=== PATIENT | male | born 1955 | race Caucasian/White ===

== ENCOUNTER 2022-01-10 10:13 | Outpatient (CLI) | payer MEDICARE, SELFPAY ==
--- NOTE | ~2022-01-10 | CT_ITS ---
EXAMINATION: CT lung screening DATE: 01/10/2022 10:40 INDICATION: Personal history of nicotine dependence, current smoker with 30 pack year history TECHNIQUE: Computed tomography (CT) of the chest was performed without intravenous contrast. The dose -length product (DLP) was 70.96 mGy-cm. Automated exposure control and iterative reconstruction techn Set.fmue were employed. COMPARISON: None FINDINGS: There is mild emphysema. The lungs are free of acute opacities. No pleural effusion or pneu mothorax. No suspicious pulmonary nodules are identified. No pathologically enlarged thoracic lymph n odes are identified. The heart size is normal. There are calcifications of the pericardium, likely re flecting prior pericarditis. There is severe thoracic spondylosis. IMPRESSION: 1. Lung-RADS category 1: Negative. Continue annual screening with noncontrast low-dose chest CT in 12 months. Reviewed, dictated and finalized at location A. IMPRESSION: 1. Lung-RADS category 1: Negative. Continue annual screening with noncontrast l ow-dose chest CT in 12 months.
== END 2022-01-10 10:14 | disposition home or self-care (01) ==
PROVIDERS: PCP Internal Medicine; Visit Provider Internal Medicine
DX: Z12.2 Encounter for screening for malignant neoplasm of respiratory organs (principal); Z87.891 Personal history of nicotine dependence
CPT/HCPCS: 71271

== ENCOUNTER 2024-03-07 14:50 | Outpatient (CLI) | payer MEDICARE, SELFPAY ==
--- NOTE | ~2024-03-07 | CT_ITS ---
EXAMINATION: CT lung screening DATE: 03/07/2024 15:26 INDICATION: SMOKER SCREENING-CURRENT,SOB TECHNIQUE: Computed tomography (CT) of the chest was performed without intravenous contrast. Addition al 3D reconstructions utilizing coronal maximum intensity projection (MIP) were performed. Automated exposure control and iterative reconstruction technique were employed. The dose-length product was 70 .38 mGy-cm. COMPARISON: 01/10/2022 FINDINGS: Moderate emphysema. Unchanged calcified nodules in the left lower lobe consistent with old granulomat ous disease. No other suspicious pulmonary nodules, pneumonia, pulmonary edema or pleural effusion. H eart size is normal. There is extensive pericardial calcification along the which could be seen with constrictive pericarditis. Thoracic aorta is normal in caliber. No pathologically enlarged thoracic l ymphadenopathy. Severe thoracic, lower cervical and upper lumbar spondylosis. Chronic mild anterior w edging of a few mid and lower thoracic vertebral bodies. Partially visualized mild lumbar dextroscoli osis. IMPRESSION: 1. Lung-RADS category 1: Negative. Continue annual screening with noncontrast low-dose chest CT in 12 months. 2. 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 Reviewed, dictated and finalized at location A. ARY AIDE TEACHER IMPRESSION: 1. Lung-RADS category 1: Negative. Continue annual screening with noncontrast l ow-dose chest CT in 12 months. 2. Likely chronic constrictive pericarditis with extensive pericardial calcific ations.
== END 2024-03-07 14:51 | disposition home or self-care (01) ==
LOC: CHSIMG 14:52
PROVIDERS: PCP Internal Medicine; Visit Provider Internal Medicine
DX: Z12.2 Encounter for screening for malignant neoplasm of respiratory organs (principal); Z87.891 Personal history of nicotine dependence; R91.8 Other nonspecific abnormal finding of lung field
CPT/HCPCS: 71271

== ENCOUNTER 2024-03-31 12:28 | Outpatient (CLI) | payer MEDICARE, SELFPAY ==
--- NOTE | 2024-03-31 12:40 | ECHO_ITS ---
Patient Info Name: Vin Ornelas Age: 68 years : 1955 Gender: Male Ht: 63 in Wt: 128 lbs BSA: 1.61 m2 HR: 72 bpm BP: 116 / 63 mmHg Technical Quality: Good Exam Date: 03/31/2024 3:04 PM Exam Location: [facility], [place] Patient Status: Outpatient Admit Date: 03/31/2024 Staff Ordering Physician: Darron Buchanan MD Director Talent: Kyara Levine RDCS Attending Provider: Darron Buchanan MD Exam Type: CA echo doppler color flow Study Info Indications I30.8 - Other forms of acute pericarditis Complete two-dimensional, color flow and Doppler transthoracic echocardiogram is performed. Summary 1. Complete two-dimensional, color flow and Doppler transthoracic echocardiogram is performed. 2. Left ventricular chamber dimension is normal. 3. Left ventricular systolic function is normal, estimated at 60-65%. 4. Left ventricular septal wall motion is abnormal with septal motion related to bundle branch block. 5. The left ventricular diastolic function is normal. 6. E/e' 7 is not elevated. 7. Right ventricular systolic function is mildly reduced and with abnormal TAPSE 1.4 cm. 8. Left atrial chamber dimension is moderately enlarged. 9. Right atrial chamber dimension is mildly enlarged. 10. There is mild mitral valve regurgitation. 11. The aortic root size at the sinus of Valsalva is borderline dilated at 4.0 cm. 12. Dilated inferior vena cava with >50% collapse upon inspiration consistent with elevated right atrial pressure, 10 mmHg. 13. Interventricular dependence, pericardial calcification stripe and dilated inferior vena cava suggestive of constrictive pericarditis. Consider CT chest to assess pericardium. Left Ventricle E/e' 7 is not elevated. Left ventricular chamber dimension is normal. Left ventricular systolic function is normal, estimated at 60-65%. Left ventricular septal wall motion is abnormal with septal motion related to bundle branch block. The left ventricular diastolic function is normal. Right Ventricle Right ventricular systolic function is mildly reduced and with abnormal TAPSE 1.4 cm. Right ventricular chamber dimension is normal. Left Atria Left atrial chamber dimension is moderately enlarged. Right Atria Right atrial chamber dimension is mildly enlarged. Aortic Valve The aortic valve is trileaflet. There is no aortic valve stenosis. There is no aortic valve regurgitation. Pulmonic Valve There is no pulmonic regurgitation. Mitral Valve There is no mitral valve stenosis. There is mild mitral valve regurgitation. Tricuspid Valve There is no tricuspid valve regurgitation. Pericardium/Pleural Interventricular dependence, pericardial calcification stripe and dilated inferior vena cava suggestive of constrictive pericarditis. Consider CT chest to assess pericardium. There is no pericardial effusion. Inferior Vena Cava Dilated inferior vena cava with >50% collapse upon inspiration consistent with elevated right atrial pressure, 10 mmHg. Aorta The aortic root size at the sinus of Valsalva is borderline dilated at 4.0 cm. Left Ventricular Outflow Tract Name Value Normal LVOT 2D LVOT Diameter 2.0 cm LVOT Doppler LVOT Peak Velocity 93 cm/s LVOT Peak Gradient 3 mmHg LVOT Mean Gradient 2 mmHg LVOT VTI 19 cm LVOT VTI/AV VTI Ratio 0.8 LVOT Stroke Volume 59 ml Pulmonic Valve Name Value Normal PV Doppler PV Peak Velocity 81 cm/s PV Peak Gradient 3 mmHg Mitral Valve Name Value Normal MV Doppler MV Decel Placer 569 cm/s2 MV PHT 40 ms MV Area (PHT) 5.5 cm2 4.0-5.0 MV Diastolic Function MV E Peak Velocity 79 cm/s MV A Peak Velocity 48 cm/s MV E/A 1.6 MV Decel Time 139 ms Tricuspid Valve Name Value Normal Estimated PAP/RSVP RA Pressure 10 mmHg <=5 Aortic Valve Name Value Normal AV Doppler AV Peak Velocity 109 cm/s AV Peak Gradient 5 mmHg AV Mean Gradient 3 mmHg AV VTI 24 cm AV Area (Cont Eq VTI) 2.4 cm2 >=3.0 AV Area (Cont Eq Evangelist) 2.6 cm2 AV V1/V2 Ratio 0.85 AV Regurgitation 2D LVOT Area 3.0 cm2 Ventricles Name Value Normal LV Dimensions 2D/MM IVS Diastolic Thickness (2D) 0.7 cm 0.6-1.0 LVID Diastole (2D) 4.3 cm 4.2-5.8 LVIW Diastolic Thickness (2D) 0.8 cm 0.6-1.0 LVID Systole (2D) 3.3 cm 2.5-4.0 LVOT Diameter 2.0 cm LV Mass (2D Cubed) 93.68 g 88.00-224.00 LV Mass Index (2D Cubed) 58 g/m2 49-115 Relative Wall Thickness (2D) 0.35 LV Fractional Shortening/Ejection Fraction 2D/MM LV Fractional Shortening (2D) 23 % 25-43 LV EF (2D Teicholz) 47 % 52-72 LV Diastolic Volume (4C MOD) 101 ml LV EF (4C MOD) 32 % LV Diastolic Volume (2C MOD) 125 ml LV EF (2C MOD) 36 % LV Diastolic Volume (BP MOD) 114 ml 62-150 LV Diastolic Volume Index (BP MOD) 71 ml/m2 34-74 LV Systolic Volume (BP MOD) 78 ml 21-61 LV Systolic Volume Index (BP MOD) 48 ml/m2 11-31 LV EF (BP MOD) 32 % 52-72 LV Diastolic Length (4C) 7.9 cm LV Systolic Length (4C) 6.9 cm LV Stroke Volume (4C MOD) 32 ml Atria Name Value Normal LA Dimensions LA Volume (4C A-L) 71 ml LA Volume (BP A-L) 86 ml RA Dimensions RA Area (4C) 16.2 cm2 <=18.0 Report Signatures
[2024-03-31 12:45] LABS: Basophils Absolute Auto 0.05 K/mm3 (0.00-0.10); Basophils Percent Auto 0.4 % (0.0-1.0); Eosinophils Percent Auto 0.9 % (1.0-6.0); Hematocrit 45.1 % (37.0-46.0); Hemoglobin 15.2 g/dL (12.4-15.3); Immature Granulocyte Absolute 0.07 K/mm3 (0.00-0.00); Immature Granulocyte Percent A 0.6 % (0.0-0.0); Lymphocytes Absolute Auto 2.55 K/mm3 (1.10-4.50); Lymphocytes Percent Auto 22.3 % (18.0-42.0); Mean Corpuscular HGB Conc 33.7 g/dL (32-36); Mean Corpuscular Volume 91.9 fL (78.0-102.0); Mean Platelet Volume 9.1 fl (8.7-11.0); Monocytes Absolute Auto 0.46 K/mm3 (0.10-0.90); Neutrophils Absolute Auto 8.18 K/mm3 (1.70-7.20); Neutrophils Percent Auto 71.8 % (50.0-70.0); Platelet Count Result 405 K/mm3 (150-420); Red Blood Count 4.91 M/mm3 (4.70-6.10); Red Cell Distribution Width 13.3 % (11.6-14.4); White Blood Count 11.4 K/mm3 (4.8-10.8)
[2024-03-31 13:22] LABS: CRP 1.9 mg/dL (0.0-0.9)
[2024-03-31 13:45] LABS: Erythrocyte Sedimentation Rate 19 mm/hr (0-20)
[2024-04-02 16:33] LABS: NIL 0.27 IU/mL; Quantiferon TB Plus, 1T NEGATIVE (NEGATIVE); TB1-NIL 0.03 IU/mL
[2024-04-06 04:19] LABS: ANCA Screen NEGATIVE (NEGATIVE)
== END 2024-03-31 12:29 | disposition home or self-care (01) ==
LOC: CHSCARD 12:30
PROVIDERS: PCP Internal Medicine; Visit Provider Internal Medicine
DX: I30.8 Other forms of acute pericarditis (principal); R74.8 Abnormal levels of other serum enzymes; I34.0 Nonrheumatic mitral (valve) insufficiency; I51.7 Cardiomegaly
CPT/HCPCS: 36415; 85025; 85652; 86036; 86038; 86039; 86140; 86480; 93306; 94060; 94726; 94729

== ENCOUNTER 2024-05-30 14:53 | Outpatient (CLI) | payer MEDICARE, SELFPAY ==
--- OUTSIDE RECORDS SUMMARY | 2024-05-30 17:40 | XMS_ITS | Clinical Summary ---
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 Gender Identity Not on file Sexual Orientation Not on file Last Filed Vital Signs Vital Sign Reading Time Taken Comments Blood Pressure 119/66 01/08/2017 10:12 AM CDT Pulse - - Temperature - - Respiratory Rate - - Oxygen Saturation - - Inhaled Oxygen Concentration - - Weight 62.6 kg (138 lb) 01/08/2017 10:12 AM CDT Height 160 cm (5' 3 ) 01/08/2017 10:12 AM CDT Body Mass Index 24.45 01/08/2017 10:12 AM CDT Plan of Treatment Health Maintenance Due Date Last Done Comments Colorectal Cancer Screening Colonoscopy (10 Years) 1955 Hepatitis C 1974 DTaP, Tdap and Td Vaccines ( 1 - Tdap) 10/01/1975 Zoster Vaccines (1 of 2) 2006 Pneumococcal Vaccine: 65+ Ye ars (1 of 1 - PCV) 2021 COVID-19 Vaccine ( - 2023-2 5 season) 2023 Influenza Adult (#1) 2024 RSV Immunization or 60+ Years (1 - 1-dose 75+ series) 10/01/2031 Meningococcal B Vaccine Aged Out No l onger eligible based on patient's age to complete this topic Meningococcal Vaccine Aged Out No hannah citlali eligible based on patient's age to complete this topic RSV Immunizations Under 20 Months Aged Out No longer eligible based on patient's age to complete this topic Insurance [facility] Care Teams Sinter Feeder Relationship Specialty Start Date End Date Carlitos Rivera MD [address] [place] [address] PCP - General FAMILY PRACTICE 12/29/19
== END 2024-05-30 14:54 | disposition home or self-care (01) ==
LOC: CHSCARD 14:54
PROVIDERS: PCP Internal Medicine; Visit Provider Internal Medicine Cardiovascular Disease
DX: I31.1 Chronic constrictive pericarditis (principal)
CPT/HCPCS: 99199

== ENCOUNTER 2024-06-20 00:23 | Day surgery (SDC) | payer MEDICARE, SELFPAY ==
[2024-06-20] VITALS (20 sets, daily range): BP systolic 106–165; BP diastolic 62–104; PULSE 60–75; RESP 14–26; TEMP 36.7; O2SAT 94–96; BMI 23.0
--- OUTSIDE RECORDS SUMMARY | 2024-06-20 00:26 | XMS_ITS | Clinical Summary ---
Author Organization 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
[2024-06-20 07:37] LABS: Basophils Absolute Auto 0.1 K/mm3 (0.0-0.1); Basophils Percent Auto 0.6 % (0.2-1.2); Eosinophils Absolute Auto 0.2 K/mm3 (0-0.3); Eosinophils Percent Auto 1.5 % (0-4.4); Hematocrit 39.7 % (42.0-52.0); Hemoglobin 13.1 g/dL (14.0-18.0); Immature Granulocyte Absolute 0.08 K/mm3 (0.00-0.031); Immature Granulocyte Percent A 0.8 % (0-0.5); Lymphocytes Percent Auto 18.2 % (18.3-44.2); Mean Corpuscular Hemoglobin 30.8 pg (26-34); Mean Corpuscular Volume 93.2 fl (80-100); Mean Platelet Volume 8.8 fl (7.4-10.4); Monocytes Absolute Auto 0.6 K/mm3 (0.1-0.6); Monocytes Percent Auto 5.4 % (2.6-8.5); Neutrophils Absolute Auto 7.7 K/mm3 (1.3-6.7); Neutrophils Percent Auto 73.5 % (45.5-73.1); Platelet Count Result 414 k/mm3 (150-375); Red Blood Count 4.26 M/mm3 (4.6-6.20); Red Cell Distribution Width 13.2 % (11.5-14.5); White Blood Count 10.5 K/mm3 (4.5-10.0)
[2024-06-20 07:49] LABS: Anion Gap 7 mmol/L (4-12); Blood Urea Nitrogen 8 mg/dL (9-20); Carbon Dioxide 29 mmol/L (22-30); Chloride 100 mmol/L (98-107); Estimated CRCL calculation 60 ml/min; Estimated Glomerular Filt Rate > 60; Glucose 102 mg/dL (65-110); Potassium 4.2 mmol/L (3.4-5.0); Sodium 136 mmol/L (137-145)
--- NOTE | 2024-06-20 08:47 | WPDHPUPDATE1 ---
History and Physical Update Update Date/Time: 06/20/24 08:37 History and Physical has been reviewed, including an updated exam of the patient. There are NO changes in the patient's condition. Risks, benefits, and alternatives have been discussed and questions answered. Patient agrees to proceed with procedure.
--- NOTE | 2024-06-20 08:47 | WPDMODSED ---
Moderate Sedation Note-Pt Data Patient Data Allergies Allergy/AdvReac Type Severity Reaction Status Date / Time No Known Allergies Allergy Verified 06/20/24 07:58 Home Medications ?Medication ?Instructions ?Recorded ?Confirmed ?Type budesonide 160 mcg-glycopyr 9 2 inh inhalation BID 05/30/24 06/20/24 History mcg-formot 4.8 mcg/actuation HFA inhaler (Breztri Aerosphere) Current Medications: Active Medications Sodium Chloride (Normal Saline Iv) 500 mls @ 100 mls/hr IV CONT .Q5H [facility] Sedation/Anesthesia: No previous sedation/anesthesia problems (including family history). [facility] Social History Social History Smoking status: Former smoker Tobacco type: cigarettes Second hand tobacco smoke exposure: No Smoking end date: 04/13/24 Additional smoking assessment comments: nictotine patches Alcohol intake: former Substance use: never Living arrangements: alone Spiritual care concerns: No Mod Sed Physical Exam Physical Exam Pre Procedural Exam: Normal: Heart Rate Hours since solid foods: 12 Hours since liquid intake: 12 Mallampati Classification: class II Internal Medicine - PN: Obj Da Vital Signs Vital Signs: Vital Signs - 24 hr 06/20/24 07:00 Temperature 36.7 C Pulse Rate 75 Respiratory Rate 14 Blood Pressure 131/70 Pulse Oximetry 96 Oxygen Delivery Room Air Meds/Results Medications: Active Medications Generic Name Dose Route Start Last Admin Trade Name Freq PRN Reason Stop Dose Admin Sodium Chloride 500 mls @ 100 mls/hr 06/20/24 07:00 Normal Saline Iv IV CONT .Q5H [facility] Labs 06/20/24 07:25 06/20/24 07:25 Labs: Laboratory Results - last 24 hr 06/20/24 07:25 WBC 10.5 H RBC 4.26 L Hgb 13.1 L Hct 39.7 L MCV 93.2 MCH 30.8 MCHC 33.0 RDW 13.2 Plt Count 414 H MPV 8.8 Immature Gran % (Auto) 0.8 H Neut % (Auto) 73.5 H Lymph % (Auto) 18.2 L Oliver % (Auto) 5.4 Eos % (Auto) 1.5 Baso % (Auto) 0.6 Lymph # (Auto) 1.90 Oliver # (Auto) 0.6 Eos # (Auto) 0.2 Baso # (Auto) 0.1 Abs Immat Gran (auto) 0.08 H Absolute Neuts (auto) 7.7 H Absolute Nucleated RBC 0.000 Nucleated RBC % 0.0 Sodium 136 L Potassium 4.2 Chloride 100 Carbon Dioxide 29 Anion Gap 7 BUN 8 L Creatinine 0.84 Estim Creat Clear Calc 60 Estimated GFR > 60 Glucose 102 Calcium 9.0 ASA Classification/Sedation ASA Classification/Sedation ASA Class: III Emergent: No Risks: Risks, benefits and alternatives explained and patient/family accepted plan for sedation. Patient re-evaluated immediately prior to sedation.
--- NOTE | 2024-06-20 09:11 | WPDCARDPROC ---
Cardiac Cath Procedure Note Date of procedure:: 06/20/24 Performing physician:: CATHETERIZATION LABORATORY REPORT Procedure Date: 06/20/2024 Referring Physician: Dr. Manning Anesthesia: Versed and Fentanyl were ordered and given in my presence at 0852, procedure ended at 0910. Supervision of nurse, Lily Moffett monitored moderate sedation with 2mg Versed and 50mcg Fentanyl was provided for 18 minutes. Pre-op Diagnosis: Constrictive pericarditis Post-op Diagnosis: Constrictive pericarditis Procedure(s): Left heart catheterization with coronary angiography Access Site: Right radial artery Brief History and Clinical Indications: 68-year-old man with COPD and constrictive pericarditis presents to define his coronary anatomy prior to pericardial stripping All risks, benefits and alternatives to left heart catheterization with or without percutaneous coronary intervention was discussed at length with the patient. Risk of complications including but not limited to bleeding, infection, arrhythmia, stroke, worsening kidney function, blood loss, groin hematoma, limb loss, emergency coronary artery bypass grafting, and even were discussed with the patient and all questions were answered. The patient understood and wished to proceed. Time out called, patient name, date of , medical record number, allergies, procedure performed, identify Change Coordinator, patient and staff member concurred with accurate data, procedure carried on. Findings: LEFT HEART CATHETERIZATION FINDINGS: 1. Left main: The left main coronary artery is normal. 2. Left anterior descending: The LAD and the diagonal branches are normal. 3. Left circumflex: The left circumflex artery is a large dominant vessel. The left circumflex and its main marginal branches and LPDA are normal. 4. Right coronary artery: The RCA is a small nondominant vessel with no obstructive coronary artery disease. 5. Left ventricle: A. End-diastolic pressure 25 mmHg. B. LV gram deferred. C. No significant gradient across aortic valve on catheter pullback. 6. Opening AO pressure 100/52 and closing AO pressure 109/53 Description of Procedure: Informed consent signed and placed in the chart. Patient transferred to nitriles lab technician room. Prepped and draped in usual sterile fashion. 2% lidocaine injected subcutaneously in right wrist area. 22-gauge venipuncture catheter used to access the right radial artery with the Seldinger technique. 6-FR slender sheath placed in right radial artery. Nitroglycerin 200mcg, Verapamil 2.5mg, and Heparin 5000U was given intraarterial through the sheath. J wire advanced under fluoroscopy 5F TIG diagnostic catheter engaged Left Main Coronary Artery. 5F JR4 diagnostic catheter engaged Right Coronary Artery Multiple orthogonal angiogram obtained and reviewed 5F Pigtail diagnostic catheter crossed aortic valve to obtain LVEDP, LV angiogram deferred. Hemostasis was achieved by application of TR band. Assessment: Normal coronaries Post Operative Condition: Stable No significant blood loss Disposition: Home Plan: Plan for pericardiectomy Sridhar Patterson Interventional Cardiology
== END 2024-06-20 13:46 | disposition home or self-care (01) ==
PROVIDERS: PCP Internal Medicine; Visit Provider Internal Medicine
PROC: 4A023N7 Measurement of Cardiac Sampling and Pressure, Left Heart, Percutaneous Approach (ICD-10-PCS; CPT 93452; principal; 2024-06-20 08:30)
DX: I31.1 Chronic constrictive pericarditis (principal); F17.290 Nicotine dependence, other tobacco product, uncomplicated
CPT/HCPCS: 36415; 80048; 85025; 93458; C1769; C1887; C1894; J1644; J2003; J2250; J2305; J3010; J7040